=== PATIENT | male | born 1975 | race Hispanic/Latino ===

== ENCOUNTER 2023-08-22 09:48 | Inpatient (IN) | payer SELFPAY ==
[2023-08-22] MEDS ORDERED: Ipratropium/Albuterol 3 ML NEB ONE (10:01)
[2023-08-22] MEDS ORDERED: cefTRIAXone (ROCEPHIN) 1 GM VIAL ONE (10:21)
[2023-08-22] MEDS ORDERED: Azithromycin 500 MG VIAL ONE (10:21)
[2023-08-22] MEDS ORDERED: Sodium Chloride 0.9% 100 ML ONE (10:22)
[2023-08-22] MEDS ORDERED: Iopamidol-370 76% 500 ML MDV (1 ML CHARGE) ONE (10:23)
[2023-08-22 10:39] LABS: Hematocrit 47.5 % (42.0-52.0); Hemoglobin 16.5 g/dL (14.0-18.0); Manual Diff?? YES; Mean Corpuscular HGB CONC 34.7 g/dL (32.0-36.0); Mean Corpuscular Hemoglobin 30.1 pg (27.0-31.0); Mean Corpuscular Volume 86.7 fl (78.0-98.0); Platelet Count 180 10x3/uL (130-400); RBC Distribution Width 12.6 % (11.5-14.5); Red Blood Cell (RBC) Count 5.48 mill/uL (4.70-6.10); White Blood Cell (WBC) Count 4.8 10x3/uL (4.8-10.8)
[2023-08-22 10:41] LABS: Delete Auto Diff?? YES
[2023-08-22] MEDS ORDERED: Dexamethasone 10 MG/ML VIAL ONE (10:57)
[2023-08-22 10:59] LABS: Actual Bicarbonate (HCO3a) 14.4 mEq/L (22-28); Analyzer IN Cardio ER; Base Excess (BEa) -8.7 mEq/L (-2.0 to +3.0); CO2 Tension 25.3 mmHg (35.0-45.0); Calcium, Ionized (arterial) 1.26 mmol/L (1.12-1.30); Carboxyhemoglobin (COHb) 0.9 gm% (0.0-3.0); Hematocrit-ABG 47 % (42.0-52.0); O2 Tension (PaO2), arterial 49.3 mmHg (80.0-100.0); Potassium - ABG Lab 3.32 mmol/L (3.70-5.30); pH, Arterial 7.373 (7.35-7.45)
[2023-08-22 11:00] LABS: Puncture Site LRA
[2023-08-22 11:17] LABS: Critical Call Chem Troponin I NUR.LH12@1115; Critical Call Chem-Lactate NUR.LH12@1115; Troponin I 0.649 ng/mL (< 0.028)
[2023-08-22 11:23] LABS: Anisocytosis MARKED = >30 cells HPF (0-5); Band 18 % (5-11); Burr Cells SLIGHT = 2-5 cells HPF (0-1); CellaVision Operator ID LAB.KW3; Large Platelets 9.8 % (0-5); Lymphocytes 13 % (21-51); Monocytes 61 % (0-10); Neutrophil 7 % (42-75); Nucleated RBC (Manual Ct) 1 % (0); Platelet Adequacy Comment Platelets Normal; Reactive Lymphocytes 1 % (0-10); Total Cell Count 112
[2023-08-22 11:47] LABS: ALT (SGPT) 42 U/L (8-55); AST (SGOT) 87 U/L (5-34); Albumin 3.2 g/dL (3.5-5.0); Alkaline Phosphatase 163 U/L (40-110); Anion Gap 26 mmol/L (10-20); BUN (Urea Nitrogen) 34 mg/dL (8.9-20.6); Bilirubin, Total 0.8 mg/dL (0.2-1.2); Calc. Creatinine Clearance 0 mL/min (70-130); Calcium 10.2 mg/dL (7.8-10.44); Carbon Dioxide 14 mmol/L (22-29); Chloride 96 mmol/L (98-107); Estimated GFR 50; Globulin 3.9 g/dL (2.4-3.5); Glucose 357 mg/dL (70-105); Lipase 7 U/L (8-78); Potassium 3.5 mmol/L (3.5-5.1); Protein, Total 7.1 g/dL (6.0-8.3); Sodium 132 mmol/L (136-145)
[2023-08-22 11:58] LABS: SARS-CoV-2 NAA Rapid Test Not Detected (NotDetected)
[2023-08-22] MEDS ORDERED: Aspirin Chewable 81 MG TAB ONE (12:21)
[2023-08-22] MEDS ORDERED: Heparin 25,000 units/D5W 0 ML ONE (12:22)
[2023-08-22] MEDS ORDERED: NS 0.9% w/ 20 MEQ KCL 0 ML ONE (12:22)
[2023-08-22] MEDS ORDERED: Insulin Regular 300 UNITS/3 ML VIAL ONE (12:22)
[2023-08-22 12:37] LABS: Actual Bicarbonate (HCO3v) 17.2 mEq/L (22-28); Base Excess -9.3 mEq/L (-2.0 to +3.0); Calcium, Ionized (venous) 1.19 mmol/L (1.16-1.32); Chloride (VBG) 96 mmol/L (98-106); Hematocrit-VBG 49 % (42.0-52.0); Hemoglobin (Hb) 16.6 g/dL (13.1-17.2); Potassium (VBG) 3.62 mmol/L (3.70-5.30); Sodium 135 mmol/L (133-146); pH (venous) 7.259 (7.32-7.43)
[2023-08-22 12:39] LABS: Bacteria/HPF None Seen HPF (None Seen); Bilirubin Negative (Negative); Blood, Urine Trace (Negative); CAUTI Indications for Culture Alt mental st,lethar; Clarity Clear (Clear); Glucose, Urine (Dipstick) Greater than 1000 mg/dL (Negative); Ketone, Urine 10 mg/dL (Negative); Leukocyte Negative Leu/uL (Negative); Nitrite Negative (Negative); Protein, Urine (Dipstick) 70 mg/dL (Neg-Trace); RBC/HPF 0-3 HPF (0-3); Specific Gravity, Urine 1.027 (1.002-1.036); Squamous Epithelial None Seen HPF (0-3); Urobilinogen Normal mg/dL (Less than 2); WBC/HPF 0-3 HPF (0-3); pH, Urine 5.5 (5.0-9.0)
[2023-08-22 12:42] LABS: Urine Culture Reflex No No
[2023-08-22 13:07] LABS: INR-International Normal Ratio 1.2; PTT 35.7 sec (22.9-36.1)
[2023-08-22] MEDS ORDERED: Lorazepam 2 MG/ML VIAL IM PRN (14:21)
[2023-08-22] MEDS ORDERED: Glucagon 1 MG/ML KIT IM PRN (14:21)
[2023-08-22] MEDS ORDERED: Ondansetron ODT 4 MG TAB PO PRN (14:21)
[2023-08-22] MEDS ORDERED: Dextrose 50% Abboject 50 ML SYRINGE SLOW IVP PRN (14:21)
[2023-08-22 14:27] LABS: Critical Call Chem-Lactate NUR.AP@1427; Lactic Acid 5.3 mmol/L (0.5-2.2)
[2023-08-22] MEDS ORDERED: Electrolyte Replacement Protocol FS SCH (14:30)
[2023-08-22 14:37] LABS: Critical Call Chem Troponin I RESULT DECREASING; Troponin I 0.633 ng/mL (< 0.028)
[2023-08-22] MEDS ORDERED: Azithromycin 500 MG in Sodium Chloride 0.9% 250 ML 250 ML IVPB SCH (15:00)
[2023-08-22] MEDS: Lactated Ringer's 1,000 ML IV SCH ×2 (15:15→17:24)
[2023-08-22] MEDS: SUCCINYLCHOLINE/SOD CL,ISO/PF 200 MG/10 ML SYRINGE FS SCH (15:15)
[2023-08-22] MEDS: Etomidate 40 MG (20 mL) VIAL IVP SCH (15:15)
[2023-08-22] MEDS: Propofol 1,000 MG/100 ML VIAL IV ONE (15:38)
[2023-08-22] MEDS: Lorazepam 2 MG/ML VIAL SLOW IVP PRN (15:56)
[2023-08-22] MEDS ORDERED: Ventilator Sedation Protocol FS SCH (16:03)
[2023-08-22] MEDS ORDERED: Ipratropium/Albuterol 3 ML NEB NEB PRN (16:05)
[2023-08-22] MEDS ORDERED: Acetaminophen 650 MG Suppository PR PRN (16:05)
[2023-08-22 16:20] LABS: Actual Bicarbonate (HCO3a) 19.4 mEq/L (22-28); CO2 Tension 38.2 mmHg (35.0-45.0); Calcium, Ionized (arterial) 1.18 mmol/L (1.12-1.30); Carboxyhemoglobin (COHb) 0.9 gm% (0.0-3.0); Hematocrit-ABG 42 % (42.0-52.0); Hemoglobin (Hb) 14.2 g/dL (14.0-18.0); Potassium - ABG Lab 3.13 mmol/L (3.70-5.30); pH, Arterial 7.324 (7.35-7.45)
[2023-08-22 16:21] LABS: Puncture Site LRA
[2023-08-22] MEDS: Fentanyl CADD 100 ML IV SCH (16:24)
[2023-08-22 16:32] LABS: Hemoglobin A1c Greater than 14.0 % (4.0-6.0)
[2023-08-22 16:51] LABS: Magnesium 1.9 mg/dL (1.6-2.6); Phosphorus 2.2 mg/dL (2.3-4.7)
[2023-08-22 17:00] LABS: Alcohol Less than 10.0 mg/dL (Less than 10); Anion Gap 14 mmol/L (10-20); BUN (Urea Nitrogen) 29 mg/dL (8.9-20.6); Calc. Creatinine Clearance 56 mL/min (70-130); Calcium 9.3 mg/dL (7.8-10.44); Carbon Dioxide 21 mmol/L (22-29); Chloride 104 mmol/L (98-107); Cholesterol 216 mg/dl (< 200 Desired); Estimated GFR 75; Glucose 276 mg/dL (70-105); HDL Cholesterol Less than 8 mg/dL (>60 Neg Risk); HIV (1/2) Antibody/Antigen Non-Reactive (NonReactive); HIV 1/2 INDEX 0.11 S/CO (<1.00); Sodium 136 mmol/L (136-145); Triglycerides 682 mg/dL (Less than 150)
[2023-08-22] MEDS ORDERED: Propofol 1,000 MG/100 ML VIAL IV PRN (17:00)
[2023-08-22] MEDS ORDERED: DISCONTINUE PREVIOUS NARCOTIC PAIN MEDICATIONS AND BENZODIAZEPINES FS SCH (17:00)
[2023-08-22] MEDS ORDERED: Fentanyl BOLUS 250 ML IVPB PRN (17:00)
[2023-08-22] MEDS ORDERED: Propofol BOLUS 1,000 MG/100 ML VIAL IV PRN (17:00)
[2023-08-22] MEDS ORDERED: Morphine 2 MG/ML VIAL SLOW IVP PRN (17:00)
[2023-08-22 17:06] LABS: Troponin I 0.865 ng/mL (< 0.028)
[2023-08-22 17:16] LABS: HBCM Index 0.06 S/CO (0-0.79); HBSAg Index 0.37 S/CO (0-0.99); Hep A IgM AB Non-Reactive S/CO (NonReactive); Hep A IgM S/CO 0.09 S/CO (0-0.79); Hep B Surf Ag Non-Reactive S/CO (NonReactive); Hep C IgG Ab Non-Reactive S/CO (NonReactive); Hepatitis B Core IgM Abs Non-Reactive S/CO (NonReactive); Thyroid Stimulating Hormone 1.5258 uIU/mL (0.35-4.94)
[2023-08-22] MEDS: Lorazepam 2 MG/ML VIAL ONE ×2 (17:24)
[2023-08-22] MEDS: Fentanyl CADD 100 ML ONE (17:28)
[2023-08-22] MEDS ORDERED: Dexmedetomidine In 0.9 % NaCl 100 ML IVPB SCH (17:30)
[2023-08-22] MEDS ORDERED: NOREPINEPHRINE 8 MG/250 ML-D5W 250 ML IVPB SCH ×2 (17:30)
[2023-08-22] MEDS: Vancomycin (BATCH) 1.25 GM in Premix 1 BAG IVPB SCH (17:41)
[2023-08-22] MEDS: cefTRIAXone\\ROCEPHIN 1 GM in Sodium Chloride 0.9% 100 ML IVPB SCH (17:42)
[2023-08-22] MEDS: Oseltamivir 75 MG CAP PO SCH (17:49)
[2023-08-22] MEDS ORDERED: Electrolyte Replacement Protocol FS PRN (18:00)
[2023-08-22] MEDS: Potassium Chloride 20 MEQ in Premix 1 BAG IVPB SCH (18:13)
[2023-08-22] MEDS: Magnesium 2 GM/50 ML(in water) 2 GM in Premix 1 BAG IVPB SCH (18:14)
[2023-08-22] MEDS: HumaLOG 300 UNITS/3 ML VIAL SC PRN (18:44)
[2023-08-22] MEDS: Ipratropium/Albuterol 3 ML NEB NEB SCH (18:59)
[2023-08-22 19:13] LABS: Amphetamine Not Detected (NotDetected); Barbiturates Screen Not Detected (NotDetected); Benzodiazepine Screen Not Detected (NotDetected); Cocaine Metabolite Screen Not Detected (NotDetected); Methadone Not Detected (NotDetected); Methamphetamine Not Detected (NotDetected); Opiate Screen Not Detected (NotDetected); Oxycodone Screen Not Detected (NotDetected); Phencyclidine (PCP) Not Detected (NotDetected); THC/Cannabinoid Screen Not Detected (NotDetected); Tricyclic Screen Not Detected (NotDetected)
[2023-08-22 20:57] LABS: Critical Call Chem-Lactate EMS.SS@2054; Lactic Acid 4.9 mmol/L (0.5-2.2)
[2023-08-22] MEDS ORDERED: Vancomycin (BATCH) 1.5 GM in Premix 1 BAG IVPB SCH (21:00)
[2023-08-22] MEDS: Albumin 25% 25 GM (100 mL) BOT IVPB SCH ×2 (21:33→22:58)
[2023-08-22] MEDS ORDERED: Albumin 25% 25 GM (100 mL) BOT IVPB SCH (23:59)
[2023-08-23 00:01] LABS: Lactic Acid 2.7 mmol/L (0.5-2.2)
[2023-08-23] MEDS: Albumin 25% 100 ML ONE (00:54)
[2023-08-23 04:54] LABS: Phosphorus 2.6 mg/dL (2.3-4.7)
[2023-08-23 05:01] LABS: Manual Diff?? YES; Mean Corpuscular HGB CONC 34.3 g/dL (32.0-36.0); Mean Corpuscular Hemoglobin 30.1 pg (27.0-31.0); Mean Corpuscular Volume 87.6 fl (78.0-98.0); Platelet Count 125 10x3/uL (130-400); RBC Distribution Width 12.8 % (11.5-14.5); Red Blood Cell (RBC) Count 3.86 mill/uL (4.70-6.10); White Blood Cell (WBC) Count 8.3 10x3/uL (4.8-10.8)
[2023-08-23 05:04] LABS: Delete Auto Diff?? YES; Hemoglobin 11.6 g/dL (14.0-18.0)
[2023-08-23 05:07] LABS: ALT (SGPT) 23 U/L (8-55); AST (SGOT) 51 U/L (5-34); Albumin 3.1 g/dL (3.5-5.0); Alkaline Phosphatase 102 U/L (40-110); Anion Gap 14 mmol/L (10-20); BUN (Urea Nitrogen) 29 mg/dL (8.9-20.6); Bilirubin, Total 0.9 mg/dL (0.2-1.2); Calc. Creatinine Clearance 70 mL/min (70-130); Calcium 8.9 mg/dL (7.8-10.44); Carbon Dioxide 21 mmol/L (22-29); Chloride 108 mmol/L (98-107); Estimated GFR 96; Globulin 2.2 g/dL (2.4-3.5); Glucose 262 mg/dL (70-105); Magnesium 2.5 mg/dL (1.6-2.6); Potassium 3.4 mmol/L (3.5-5.1); Protein, Total 5.3 g/dL (6.0-8.3); Sodium 140 mmol/L (136-145)
[2023-08-23 05:31] LABS: Anisocytosis SLIGHT = 6-15 cells HPF (0-5); Band 41 % (5-11); CellaVision Operator ID LAB.CLH1; Hypochromia SLIGHT = 6-15 cells HPF (0-5); Large Platelets 2.5 % (0-5); Lymphocytes 3 % (21-51); Macrocytosis SLIGHT = 6-15 cells HPF (0-5); Metamyelocyte 8 % (0-0); Monocytes 23 % (0-10); Myelocyte 1 % (0-0); Neutrophil 24 % (42-75); Platelet Adequacy Comment Platelets Decreased; Poikilocytosis SLIGHT = 6-15 cells HPF (0-5); Polychromasia SLIGHT = 2-3 cells HPF (0-2); Reactive Lymphocytes 1 % (0-10); Total Cell Count 122
[2023-08-23 05:32] LABS: Hematocrit 33.8 % (42.0-52.0)
[2023-08-23 07:39] LABS: Actual Bicarbonate (HCO3a) 18.6 mEq/L (22-28); Base Excess (BEa) -6.7 mEq/L (-2.0 to +3.0); CO2 Tension 36.5 mmHg (35.0-45.0); Calcium, Ionized (arterial) 1.28 mmol/L (1.12-1.30); Carboxyhemoglobin (COHb) 0.5 gm% (0.0-3.0); Hematocrit-ABG 37 % (42.0-52.0); Hemoglobin (Hb) 12.6 g/dL (14.0-18.0); O2 Tension (PaO2), arterial 76.9 mmHg (80.0-100.0); Potassium - ABG Lab 3.46 mmol/L (3.70-5.30); pH, Arterial 7.325 (7.35-7.45)
[2023-08-23 07:42] LABS: ALV-art Gradient 233.975 mmHg (0-20); Puncture Site RRA
[2023-08-23] MEDS ORDERED: Oseltamivir 75 MG CAP PO SCH (09:00)
[2023-08-23] MEDS: Pantoprazole 40 MG VIAL IVP SCH (09:28)
[2023-08-23] MEDS: Potassium Chloride 20 MEQ in Premix 1 BAG IVPB SCH (09:29)
[2023-08-23] MEDS: Enoxaparin 40 MG (0.4 mL) SYRINGE SC SCH (09:32)
[2023-08-23] MEDS: Folic Acid 1 MG TAB PO SCH (09:33)
[2023-08-23] MEDS: Multivit, Therapeutic 1 TAB PO SCH (09:33)
[2023-08-23] MEDS: Oseltamivir 75 MG CAP PO SCH (09:33)
[2023-08-23] MEDS: Vancomycin HCl 750 MG in Sodium Chloride 0.9% 250 ML 250 ML IVPB SCH (09:33)
[2023-08-23 15:08] LABS: CK (CPK) 16 U/L (30-200)
[2023-08-23 17:17] LABS: Potassium 3.6 mmol/L (3.5-5.1)
[2023-08-24 05:04] LABS: Hematocrit 35.8 % (42.0-52.0); Manual Diff?? YES; Mean Corpuscular HGB CONC 33.5 g/dL (32.0-36.0); Mean Corpuscular Hemoglobin 29.2 pg (27.0-31.0); Mean Corpuscular Volume 87.1 fl (78.0-98.0); Mean Platelet Volume 10.2 fL (7.4-10.4); Platelet Count 128 10x3/uL (130-400); RBC Distribution Width 13.4 % (11.5-14.5); Red Blood Cell (RBC) Count 4.11 mill/uL (4.70-6.10); White Blood Cell (WBC) Count 7.1 10x3/uL (4.8-10.8)
[2023-08-24 05:08] LABS: Delete Auto Diff?? YES
[2023-08-24 05:24] LABS: Anion Gap 17 mmol/L (10-20); BUN (Urea Nitrogen) 27 mg/dL (8.9-20.6); Calc. Creatinine Clearance 69 mL/min (70-130); Calcium 9.3 mg/dL (7.8-10.44); Carbon Dioxide 18 mmol/L (22-29); Chloride 110 mmol/L (98-107); Estimated GFR 85; Glucose 281 mg/dL (70-105); Potassium 3.3 mmol/L (3.5-5.1); Sodium 142 mmol/L (136-145)
[2023-08-24 05:53] LABS: Anisocytosis SLIGHT = 6-15 cells HPF (0-5); Band 23 % (5-11); Burr Cells MODERATE= 6-15 cells HPF (0-1); CellaVision Operator ID lab.sh2; Dohle Bodies SLIGHT; Large Platelets 4.8 % (0-5); Lymphocytes 4 % (21-51); Neutrophil 73 % (42-75); Nucleated RBC (Manual Ct) 2 % (0); Platelet Adequacy Comment Platelets Decreased; Polychromasia SLIGHT = 2-3 cells HPF (0-2); Smudge Cells 3.8 %; Tear Drops SLIGHT = 2-5 cells HPF (0-1); Total Cell Count 104
[2023-08-24 07:55] LABS: Actual Bicarbonate (HCO3a) 21.4 mEq/L (22-28); Base Excess (BEa) -2.9 mEq/L (-2.0 to +3.0); CO2 Tension 35.7 mmHg (35.0-45.0); Calcium, Ionized (arterial) 1.34 mmol/L (1.12-1.30); Carboxyhemoglobin (COHb) 0.7 gm% (0.0-3.0); Hematocrit-ABG 38 % (42.0-52.0); Potassium - ABG Lab 3.19 mmol/L (3.70-5.30); pH, Arterial 7.396 (7.35-7.45)
[2023-08-24 07:56] LABS: O2 Tension (PaO2), arterial 54.3 mmHg (80.0-100.0)
[2023-08-24 07:57] LABS: ALV-art Gradient 221.925 mmHg (0-20); Puncture Site RRA
[2023-08-24] MEDS: Potassium Chloride 20 MEQ in Premix 1 BAG IVPB SCH (09:23)
[2023-08-24] MEDS: Enoxaparin 30 MG (0.3 mL) SYRINGE SC SCH (09:23)
[2023-08-24] MEDS: Sodium Bicarbonate 70 MEQ in Sodium Chloride 0.45% 1,000 ML IV SCH (10:54)
[2023-08-24] MEDS: Lactated Ringer's 500 ML IV SCH (13:31)
[2023-08-24] MEDS: Hydrocortisone Sod Succ/PF 100 mg/2 ml Vial IVP SCH ×2 (14:54→20:12)
[2023-08-24] MEDS: cefTRIAXone\\ROCEPHIN 2 GM in Sodium Chloride 0.9% 100 ML IVPB SCH (16:13)
[2023-08-24] MEDS: HumuLIN 70/30 100 Unit/ml 10 ml Vial SC SCH (21:38)
[2023-08-25 06:32] LABS: Hematocrit 36.4 % (42.0-52.0); Hemoglobin 12.3 g/dL (14.0-18.0); Manual Diff?? YES; Mean Corpuscular HGB CONC 33.8 g/dL (32.0-36.0); Mean Corpuscular Hemoglobin 29.3 pg (27.0-31.0); Mean Corpuscular Volume 86.7 fl (78.0-98.0); Mean Platelet Volume 10.3 fL (7.4-10.4); Platelet Count 111 10x3/uL (130-400); RBC Distribution Width 13.7 % (11.5-14.5)
[2023-08-25 06:33] LABS: Delete Auto Diff?? YES
[2023-08-25 06:56] LABS: Anion Gap 13 mmol/L (10-20); BUN (Urea Nitrogen) 32 mg/dL (8.9-20.6); Calc. Creatinine Clearance 91 mL/min (70-130); Calcium 9.1 mg/dL (7.8-10.44); Carbon Dioxide 26 mmol/L (22-29); Chloride 111 mmol/L (98-107); Estimated GFR 109; Glucose 303 mg/dL (70-105); Potassium 3.1 mmol/L (3.5-5.1); Sodium 147 mmol/L (136-145)
[2023-08-25 07:09] LABS: Anisocytosis SLIGHT = 6-15 cells HPF (0-5); Band 39 % (5-11); CellaVision Operator ID LAB.CLH1; Hypochromia SLIGHT = 6-15 cells HPF (0-5); Large Platelets 3.8 % (0-5); Lymphocytes 9 % (21-51); Metamyelocyte 1 % (0-0); Monocytes 4 % (0-10); Neutrophil 46 % (42-75); Nucleated RBC (Manual Ct) 1 % (0); Platelet Adequacy Comment Platelets Decreased; Polychromasia SLIGHT = 2-3 cells HPF (0-2); Reactive Lymphocytes 2 % (0-10); Total Cell Count 105
[2023-08-25] MEDS: Potassium Chloride 20 MEQ in Premix 1 BAG IVPB SCH (08:18)
[2023-08-25] MEDS: ENOXAPARIN SC SCH (08:18)
[2023-08-25] MEDS: HumuLIN 70/30 100 Unit/ml 10 ml Vial SC SCH (09:34)
[2023-08-25] MEDS ORDERED: Thiamine 100 MG TAB PO SCH (17:00)
[2023-08-25] MEDS: Ampicillin 2 GM in Sodium Chloride 0.9% 100 ML IVPB SCH (17:10)
[2023-08-25] MEDS ORDERED: Ampicillin 2 GM in Sodium Chloride 0.9% 100 ML IVPB SCH (18:00)
[2023-08-25] MEDS: cefTRIAXone\\ROCEPHIN 2 GM in Sodium Chloride 0.9% 100 ML IVPB SCH (20:16)
[2023-08-26 04:31] LABS: Hemoglobin 11.8 g/dL (14.0-18.0); Manual Diff?? YES; Mean Corpuscular HGB CONC 33.7 g/dL (32.0-36.0); Mean Corpuscular Hemoglobin 29.4 pg (27.0-31.0); Mean Corpuscular Volume 87.1 fl (78.0-98.0); Mean Platelet Volume 10.7 fL (7.4-10.4); Platelet Count 125 10x3/uL (130-400); RBC Distribution Width 13.8 % (11.5-14.5); Red Blood Cell (RBC) Count 4.02 mill/uL (4.70-6.10); White Blood Cell (WBC) Count 3.1 10x3/uL (4.8-10.8)
[2023-08-26 04:55] LABS: Anion Gap 11 mmol/L (10-20); BUN (Urea Nitrogen) 32 mg/dL (8.9-20.6); Calc. Creatinine Clearance 98 mL/min (70-130); Calcium 8.6 mg/dL (7.8-10.44); Carbon Dioxide 27 mmol/L (22-29); Chloride 113 mmol/L (98-107); Estimated GFR 112; Glucose 215 mg/dL (70-105); Potassium 3.5 mmol/L (3.5-5.1); Sodium 147 mmol/L (136-145)
[2023-08-26 05:28] LABS: Delete Auto Diff?? YES
[2023-08-26 06:44] LABS: Anisocytosis MARKED = >30 cells HPF (0-5); Band 38 % (5-11); Burr Cells SLIGHT = 2-5 cells HPF (0-1); CellaVision Operator ID LAB.JMM; Large Platelets 11.4 % (0-5); Lymphocytes 9 % (21-51); Macrocytosis MODERATE=16-30 cells HPF (0-5); Metamyelocyte 1 % (0-0); Monocytes 3 % (0-10); Neutrophil 48 % (42-75); Nucleated RBC (Manual Ct) 2 % (0); Platelet Adequacy Comment Platelets Decreased; Polychromasia SLIGHT = 2-3 cells HPF (0-2); Reactive Lymphocytes 2 % (0-10); Smudge Cells 29.5 %; Target Cells SLIGHT = 2-5 cells HPF (0-1); Total Cell Count 105
[2023-08-26 07:05] LABS: Actual Bicarbonate (HCO3a) 27.2 mEq/L (22-28); Base Excess (BEa) 3.2 mEq/L (-2.0 to +3.0); CO2 Tension 39.2 mmHg (35.0-45.0); Calcium, Ionized (arterial) 1.28 mmol/L (1.12-1.30); Carboxyhemoglobin (COHb) 0.5 gm% (0.0-3.0); Hematocrit-ABG 37 % (42.0-52.0); Hemoglobin (Hb) 12.5 g/dL (14.0-18.0); O2 Tension (PaO2), arterial 67.1 mmHg (80.0-100.0); Potassium - ABG Lab 3.67 mmol/L (3.70-5.30); pH, Arterial 7.459 (7.35-7.45)
[2023-08-26 07:07] LABS: Puncture Site RRA
[2023-08-26] MEDS: Potassium Bicarbonate/Cit Ac 20 MEQ TAB PER TUBE SCH (07:47)
[2023-08-26] MEDS: HumuLIN 70/30 100 Unit/ml 10 ml Vial SC SCH ×2 (14:20→22:48)
[2023-08-26 16:31] LABS: Potassium 3.7 mmol/L (3.5-5.1)
[2023-08-27 05:07] LABS: Hematocrit 33.3 % (42.0-52.0); Hemoglobin 11.1 g/dL (14.0-18.0); Manual Diff?? YES; Mean Corpuscular HGB CONC 33.3 g/dL (32.0-36.0); Mean Corpuscular Hemoglobin 29.1 pg (27.0-31.0); Mean Corpuscular Volume 87.2 fl (78.0-98.0); Mean Platelet Volume 10.8 fL (7.4-10.4); Platelet Count 167 10x3/uL (130-400); Red Blood Cell (RBC) Count 3.82 mill/uL (4.70-6.10)
[2023-08-27 05:30] LABS: Anion Gap 11 mmol/L (10-20); BUN (Urea Nitrogen) 38 mg/dL (8.9-20.6); Calc. Creatinine Clearance 108 mL/min (70-130); Calcium 8.8 mg/dL (7.8-10.44); Carbon Dioxide 25 mmol/L (22-29); Chloride 112 mmol/L (98-107); Estimated GFR 112; Glucose 203 mg/dL (70-105); Potassium 3.6 mmol/L (3.5-5.1); Sodium 144 mmol/L (136-145)
[2023-08-27 05:51] LABS: Delete Auto Diff?? YES
[2023-08-27 07:02] LABS: Band 37 % (5-11); Lymphocytes 9 % (21-51); Monocytes 1 % (0-10); Neutrophil 53 % (42-75)
[2023-08-27 07:23] LABS: Actual Bicarbonate (HCO3a) 25.7 mEq/L (22-28); Base Excess (BEa) 2.5 mEq/L (-2.0 to +3.0); CO2 Tension 34.6 mmHg (35.0-45.0); Calcium, Ionized (arterial) 1.24 mmol/L (1.12-1.30); Carboxyhemoglobin (COHb) 0.8 gm% (0.0-3.0); Hematocrit-ABG 34 % (42.0-52.0); Hemoglobin (Hb) 11.6 g/dL (14.0-18.0); O2 Tension (PaO2), arterial 77.6 mmHg (80.0-100.0); Potassium - ABG Lab 3.65 mmol/L (3.70-5.30); pH, Arterial 7.488 (7.35-7.45)
[2023-08-27 07:36] LABS: Puncture Site RRA
[2023-08-27] MEDS: Furosemide 40 MG (4 mL) VIAL SLOW IVP SCH (10:49)
[2023-08-27] MEDS: LevoFLOXacin 750 mg/D5W 750 MG in Premix 1 BAG IVPB SCH (14:38)
[2023-08-28 04:27] LABS: Hematocrit 33.2 % (42.0-52.0); Hemoglobin 11.1 g/dL (14.0-18.0); Manual Diff?? YES; Mean Corpuscular HGB CONC 33.4 g/dL (32.0-36.0); Mean Corpuscular Hemoglobin 29.2 pg (27.0-31.0); Mean Corpuscular Volume 87.4 fl (78.0-98.0); Mean Platelet Volume 10.1 fL (7.4-10.4); RBC Distribution Width 14.3 % (11.5-14.5)
[2023-08-28 04:44] LABS: Delete Auto Diff?? YES; Platelet Count 267 10x3/uL (130-400)
[2023-08-28 04:47] LABS: Anion Gap 11 mmol/L (10-20); BUN (Urea Nitrogen) 33 mg/dL (8.9-20.6); Calc. Creatinine Clearance 109 mL/min (70-130); Calcium 8.1 mg/dL (7.8-10.44); Carbon Dioxide 32 mmol/L (22-29); Chloride 105 mmol/L (98-107); Estimated GFR 113; Glucose 82 mg/dL (70-105); Sodium 145 mmol/L (136-145)
[2023-08-28 05:04] LABS: Potassium 2.6 mmol/L (3.5-5.1)
[2023-08-28 05:35] LABS: Band 1 % (5-11); CellaVision Operator ID lab.abc; Large Platelets 4.8 % (0-5); Lymphocytes 5 % (21-51); Metamyelocyte 1 % (0-0); Myelocyte 1 % (0-0); Neutrophil 88 % (42-75); Plasma Cells 1 % (0-0); Platelet Adequacy Comment Platelets Normal; Reactive Lymphocytes 2 % (0-10); Smudge Cells 16.9 %; Target Cells SLIGHT = 2-5 cells HPF (0-1); Total Cell Count 83
[2023-08-28] MEDS: Potassium Chloride 20 MEQ in Premix 1 BAG IVPB SCH (06:09)
[2023-08-28] MEDS: Dextrose 5% in Water 1,000 ML IV PRN (06:14)
[2023-08-28] MEDS: Furosemide 40 MG (4 mL) VIAL SLOW IVP SCH (11:54)
[2023-08-28 17:52] LABS: Potassium 2.9 mmol/L (3.5-5.1)
[2023-08-28] MEDS: Hydrocortisone Sod Succ/PF 100 mg/2 ml Vial IVP SCH (21:10)
[2023-08-28] MEDS: POTASSIUM CHLORIDE IVPB SCH (21:10)
[2023-08-29 05:26] LABS: #Monocytes 0.1 thou/uL (0.11-0.59); #Neutrophils 6.1 thou/uL (1.40-6.50); %Basophils 0.3 % (0.0-1.0); %Lymphocytes 10.9 % (21.0-51.0); %Monocytes 1.1 % (0.0-10.0); %Neutrophils 85.3 % (42.0-75.0); Hematocrit 32.9 % (42.0-52.0); Hemoglobin 10.8 g/dL (14.0-18.0); Mean Corpuscular HGB CONC 32.8 g/dL (32.0-36.0); Mean Corpuscular Hemoglobin 28.9 pg (27.0-31.0); Mean Platelet Volume 10.5 fL (7.4-10.4); Platelet Count 326 10x3/uL (130-400); RBC Distribution Width 14.3 % (11.5-14.5); Red Blood Cell (RBC) Count 3.74 mill/uL (4.70-6.10); White Blood Cell (WBC) Count 7.1 10x3/uL (4.8-10.8)
[2023-08-29 05:47] LABS: Anion Gap 11 mmol/L (10-20); BUN (Urea Nitrogen) 28 mg/dL (8.9-20.6); Calc. Creatinine Clearance 95 mL/min (70-130); Calcium 7.9 mg/dL (7.8-10.44); Carbon Dioxide 31 mmol/L (22-29); Chloride 106 mmol/L (98-107); Estimated GFR 111; Glucose 145 mg/dL (70-105); Potassium 3.7 mmol/L (3.5-5.1); Sodium 144 mmol/L (136-145)
[2023-08-30 06:36] LABS: Hemoglobin 10.7 g/dL (14.0-18.0); Manual Diff?? YES; Mean Corpuscular HGB CONC 33.4 g/dL (32.0-36.0); Mean Corpuscular Hemoglobin 29.6 pg (27.0-31.0); Mean Corpuscular Volume 88.4 fl (78.0-98.0); Mean Platelet Volume 9.8 fL (7.4-10.4); Platelet Count 428 10x3/uL (130-400); RBC Distribution Width 14.1 % (11.5-14.5); Red Blood Cell (RBC) Count 3.62 mill/uL (4.70-6.10); White Blood Cell (WBC) Count 7.5 10x3/uL (4.8-10.8)
[2023-08-30 06:45] LABS: Delete Auto Diff?? YES
[2023-08-30 06:53] LABS: Anion Gap 10 mmol/L (10-20); BUN (Urea Nitrogen) 28 mg/dL (8.9-20.6); Calc. Creatinine Clearance 112 mL/min (70-130); Calcium 7.7 mg/dL (7.8-10.44); Carbon Dioxide 27 mmol/L (22-29); Chloride 104 mmol/L (98-107); Estimated GFR 116; Glucose 192 mg/dL (70-105); Potassium 3.3 mmol/L (3.5-5.1); Sodium 138 mmol/L (136-145)
[2023-08-30 07:15] LABS: Band 9 % (5-11); CellaVision Operator ID LAB.KW3; Large Platelets 8.2 % (0-5); Lymphocytes 3 % (21-51); Monocytes 2 % (0-10); Neutrophil 86 % (42-75); Platelet Adequacy Comment Platelets Normal; Polychromasia SLIGHT = 2-3 cells HPF (0-2); Schistocytes SLIGHT = 2-5 cells HPF (0-1); Target Cells SLIGHT = 2-5 cells HPF (0-1); Total Cell Count 97
[2023-08-30] MEDS: metFORMIN 500 MG TAB PO SCH (08:25)
[2023-08-30] MEDS: Potassium Chloride 20 MEQ in Premix 1 BAG IVPB SCH (08:41)
[2023-08-30] MEDS: Acetaminophen 325 MG TAB PO PRN (09:07)
[2023-08-30] MEDS: Potassium Chloride 20 MEQ (100 mL) BAG ONE (10:03)
[2023-08-30 19:14] LABS: Potassium 3.3 mmol/L (3.5-5.1)
[2023-08-30] MEDS: Potassium Chloride 20 MEQ TAB PO SCH (22:00)
[2023-08-30] MEDS: Atorvastatin Calcium 20 MG TAB PO SCH (22:00)
[2023-08-30] MEDS: HumaLOG 300 UNITS/3 ML VIAL SC PRN (22:06)
[2023-08-30] MEDS: Potassium Bicarbonate/Cit Ac 20 MEQ TAB PO SCH (22:59)
[2023-08-31] MEDS: DC Sedation Protocol FS ONE (01:32)
[2023-08-31] MEDS: GUAIFENESIN SF SOLN 200 MG/10 ML UDCUP PO SCH ×2 (02:06→05:14)
[2023-08-31 06:26] LABS: #Monocytes 0.1 thou/uL (0.11-0.59); #Neutrophils 7.2 thou/uL (1.40-6.50); %Basophils 0.1 % (0.0-1.0); %Lymphocytes 9.5 % (21.0-51.0); %Neutrophils 88.3 % (42.0-75.0); Hematocrit 31.2 % (42.0-52.0); Hemoglobin 10.4 g/dL (14.0-18.0); Mean Corpuscular HGB CONC 33.3 g/dL (32.0-36.0); Mean Corpuscular Hemoglobin 29.4 pg (27.0-31.0); Mean Corpuscular Volume 88.1 fl (78.0-98.0); Mean Platelet Volume 9.4 fL (7.4-10.4); Platelet Count 447 10x3/uL (130-400); RBC Distribution Width 13.9 % (11.5-14.5); Red Blood Cell (RBC) Count 3.54 mill/uL (4.70-6.10); White Blood Cell (WBC) Count 8.2 10x3/uL (4.8-10.8)
[2023-08-31 06:50] LABS: Anion Gap 12 mmol/L (10-20); BUN (Urea Nitrogen) 23 mg/dL (8.9-20.6); Calc. Creatinine Clearance 92 mL/min (70-130); Calcium 7.3 mg/dL (7.8-10.44); Carbon Dioxide 23 mmol/L (22-29); Chloride 102 mmol/L (98-107); Estimated GFR 110; Glucose 294 mg/dL (70-105); Potassium 3.1 mmol/L (3.5-5.1); Sodium 134 mmol/L (136-145)
[2023-08-31] MEDS: Potassium Chloride 20 MEQ in Premix 1 BAG IVPB SCH (07:53)
[2023-08-31] MEDS ORDERED: Enoxaparin 30 MG (0.3 mL) SYRINGE SC SCH (09:00)
[2023-08-31] MEDS ORDERED: guaiFENesin ER 600 MG TAB PO SCH (09:00)
[2023-08-31 10:40] LABS: Magnesium 1.7 mg/dL (1.6-2.6)
[2023-08-31] MEDS: Insulin Glargine 30 UNITS/0.3 ML VIAL SC SCH (11:09)
[2023-08-31] MEDS: HumaLOG 300 UNITS/3 ML VIAL SC SCH (11:11)
[2023-08-31] MEDS: Magnesium 2 GM/50 ML(in water) 2 GM in Premix 1 BAG IVPB SCH (13:20)
[2023-08-31] MEDS: Ondansetron PF 4 MG/2 ML Vial IVP PRN (15:17)
[2023-08-31] MEDS: Hydrocortisone Sod Succ/PF 100 mg/2 ml Vial IVP SCH (20:54)
[2023-08-31] MEDS ORDERED: Insulin Glargine 30 UNITS/0.3 ML VIAL SC SCH ×2 (21:00)
[2023-08-31 22:11] LABS: Potassium 3.4 mmol/L (3.5-5.1)
[2023-08-31] MEDS: Potassium Bicarbonate/Cit Ac 20 MEQ TAB PO SCH (23:38)
[2023-09-01] MEDS: Potassium Chloride 20 MEQ TAB PO SCH ×2 (01:44→13:41)
[2023-09-01 05:43] LABS: #Monocytes 0.1 thou/uL (0.11-0.59); #Neutrophils 4.6 thou/uL (1.40-6.50); %Eosinophils 0.2 % (0.0-10.0); %Lymphocytes 20.5 % (21.0-51.0); %Monocytes 1.8 % (0.0-10.0); %Neutrophils 76.7 % (42.0-75.0); Hematocrit 28.6 % (42.0-52.0); Hemoglobin 9.6 g/dL (14.0-18.0); Mean Corpuscular HGB CONC 33.6 g/dL (32.0-36.0); Mean Corpuscular Hemoglobin 29.4 pg (27.0-31.0); Mean Corpuscular Volume 87.7 fl (78.0-98.0); Platelet Count 475 10x3/uL (130-400); RBC Distribution Width 13.7 % (11.5-14.5); Red Blood Cell (RBC) Count 3.26 mill/uL (4.70-6.10)
[2023-09-01 06:07] LABS: Anion Gap 8 mmol/L (10-20); BUN (Urea Nitrogen) 17 mg/dL (8.9-20.6); Calc. Creatinine Clearance 121 mL/min (70-130); Calcium 7.7 mg/dL (7.8-10.44); Carbon Dioxide 29 mmol/L (22-29); Chloride 99 mmol/L (98-107); Estimated GFR 117; Glucose 90 mg/dL (70-105); Potassium 3.4 mmol/L (3.5-5.1); Sodium 133 mmol/L (136-145)
[2023-09-01] MEDS: Enoxaparin 30 MG (0.3 mL) SYRINGE SC SCH (08:55)
[2023-09-01 10:22] LABS: Potassium 3.4 mmol/L (3.5-5.1)
[2023-09-01] MEDS: metFORMIN 500 MG TAB PO SCH (17:10)
[2023-09-02 04:42] LABS: Hematocrit 27.6 % (42.0-52.0); Hemoglobin 9.3 g/dL (14.0-18.0); Manual Diff?? YES; Mean Corpuscular HGB CONC 33.7 g/dL (32.0-36.0); Mean Corpuscular Hemoglobin 29.6 pg (27.0-31.0); Mean Corpuscular Volume 87.9 fl (78.0-98.0); Mean Platelet Volume 9.4 fL (7.4-10.4); Platelet Count 526 10x3/uL (130-400); RBC Distribution Width 13.4 % (11.5-14.5); Red Blood Cell (RBC) Count 3.14 mill/uL (4.70-6.10); White Blood Cell (WBC) Count 5.1 10x3/uL (4.8-10.8)
[2023-09-02 04:52] LABS: Delete Auto Diff?? YES
[2023-09-02 05:02] LABS: Anion Gap 10 mmol/L (10-20); BUN (Urea Nitrogen) 16 mg/dL (8.9-20.6); Calc. Creatinine Clearance 121 mL/min (70-130); Calcium 7.5 mg/dL (7.8-10.44); Carbon Dioxide 28 mmol/L (22-29); Chloride 99 mmol/L (98-107); Estimated GFR 117; Glucose 183 mg/dL (70-105); Potassium 4.3 mmol/L (3.5-5.1); Sodium 133 mmol/L (136-145)
[2023-09-02 06:05] LABS: Anisocytosis SLIGHT = 6-15 cells HPF (0-5); CellaVision Operator ID lab.sh2; Large Platelets 5.9 % (0-5); Lymphocytes 3 % (21-51); Macrocytosis SLIGHT = 6-15 cells HPF (0-5); Monocytes 2 % (0-10); Neutrophil 96 % (42-75); Platelet Adequacy Comment Platelets Increased; Polychromasia SLIGHT = 2-3 cells HPF (0-2); Smudge Cells 26.5 %; Target Cells SLIGHT = 2-5 cells HPF (0-1); Total Cell Count 68
[2023-09-02] MEDS: Insulin Glargine 30 UNITS/0.3 ML VIAL SC SCH ×2 (09:16→11:41)
[2023-09-03] MEDS: Hydrocortisone Sod Succ/PF 100 mg/2 ml Vial IVP SCH (09:10)
[2023-09-04 12:03] VITALS: BP 110/60
[2023-09-05 05:58] VITALS: BMI 19.1
[2023-09-05 12:09] VITALS: TEMP 97.8
== END 2023-09-05 18:45 | disposition home or self-care (01) | DRG 870 ==
LOC: ERS 09:48 → CCU 13:06 → IMCU/EMU 08-31 15:41
PROVIDERS: ADMIT Family Medicine; ATTEND Family Medicine
PROC: 0BH17EZ Insertion of Endotracheal Airway into Trachea, Via Natural or Artificial Opening (ICD-10-PCS; principal; 2023-08-22)
PROC: 0DH67UZ Insertion of Feeding Device into Stomach, Via Natural or Artificial Opening (ICD-10-PCS; 2023-08-22)
PROC: 4A133R1 Monitoring of Arterial Saturation, Peripheral, Percutaneous Approach (ICD-10-PCS; 2023-08-22)
PROC: 3E03329 Introduction of Other Anti-infective into Peripheral Vein, Percutaneous Approach (ICD-10-PCS; 2023-08-22)
PROC: 3E033XZ Introduction of Vasopressor into Peripheral Vein, Percutaneous Approach (ICD-10-PCS; 2023-08-22)
PROC: 30233J1 Transfusion of Nonautologous Serum Albumin into Peripheral Vein, Percutaneous Approach (ICD-10-PCS; 2023-08-22)
PROC: 5A1955Z Respiratory Ventilation, Greater than 96 Consecutive Hours (ICD-10-PCS; 2023-08-22)
PROC: 5A0945A Assistance with Respiratory Ventilation, 24-96 Consecutive Hours, High Flow/Velocity Cannula (ICD-10-PCS; 2023-08-28)
DX: A40.3 Sepsis due to Streptococcus pneumoniae (principal); E11.10 Type 2 diabetes mellitus with ketoacidosis without coma; J96.01 Acute respiratory failure with hypoxia; J10.00 Influenza due to other identified influenza virus with unspecified type of pneumonia; R65.21 Severe sepsis with septic shock; J13 Pneumonia due to Streptococcus pneumoniae; I21.A1 Myocardial infarction type 2; E87.3 Alkalosis; N17.9 Acute kidney failure, unspecified; E87.1 Hypo-osmolality and hyponatremia; R74.01 Elevation of levels of liver transaminase levels; R79.89 Other specified abnormal findings of blood chemistry; E11.65 Type 2 diabetes mellitus with hyperglycemia; R59.0 Localized enlarged lymph nodes; E78.1 Pure hyperglyceridemia; E87.6 Hypokalemia; Z11.52 Encounter for screening for COVID-19
CPT/HCPCS: 36415; 36416; 36600; 71045; 71275; 80048; 80053; 80061; 80074; 80306; 80307; 81001; 82010; 82805; 83036; 83605; 83690; 83735; 83880; 84100; 84145; 84443; 84484; 85025; 85610; 85730; 87040; 87070; 87077; 87081; 87086; 87149; 87186; 87205; 87389; 93005; 93306; 94002; 94003; 94640; 94660; 94760; 96374; 96375; C9113; J0290; J0456; J0696; J1100; J1644; J1650; J1720; J1815; J1940; J1956; J2060; J2405; J2704; J3010; J3370; J3475; J3480; J3490; J7050; J7070; J7120; J7620; P9047; Q9967